=== PATIENT | female | born 1940 | race Two or more races ===

== ENCOUNTER 2017-05-08 13:07 | Inpatient (IN) | payer MEDICAID ==
[~2017-05-08] VITALS: Ht 149.9 cm; Wt 65.5 kg
[2017-05-08 15:00] LABS: Basophils # (auto) 0 uL; Basophils % (auto) 0.4 % (0.0-2.0); Eosinophils # (auto) 0.1 uL; Eosinophils % (auto) 1.5 % (0.0-7.0); Hematocrit 38.9 % (36.0-46.0); Hemoglobin 13.2 g/dL (12.2-16.2); Lymphocytes # (auto) 0.6 uL; Lymphocytes % (auto) 11.8 % (10.0-50.0); Mean Corpuscular Hemoglobin 31.4 pg (28.0-32.0); Mean Corpuscular Volume 92.4 fL (80.0-100.0); Monocytes # (auto) 0.5 uL; Monocytes % (auto) 9.1 % (0.0-12.0); Neutrophils # (auto) 4.1 uL; Neutrophils % (auto) 77.2 % (37.0-80.0); Platelet Count (auto) 96 10^3/uL (140-450); Red Blood Cells 4.21 10^6/uL (4.0-5.20); Red Cell Distribution Width 15.8 % (11.8-14.3); White Blood Cell 5.3 10^3/uL (4.4-10.8)
[2017-05-08 15:46] LABS: Alanine Aminotransferase 75 U/L (13-56); Albumin 3.2 g/dL (3.4-5.0); Alkaline Phosphatase 270 U/L (45-117); Amylase 207 U/L (25-115); Anion Gap 7 (5-15); Aspartate Aminotransferase 172 U/L (15-37); BUN/Creatinine Ratio 12.7; Blood Urea Nitrogen 20 mg/dL (7-18); Calcium 8.6 mg/dL (8.5-10.1); Carbon Dioxide 26 mmol/L (21-32); Chloride 105 mmol/L (98-107); GFR African American 41 mL/min; GFR Non-African American 34 mL/min; Glucose 195 mg/dL (74-106); Lipase 3472 U/L (73-393); Magnesium 2.4 mg/dL (1.6-2.6); Potassium 3.7 mmol/L (3.5-5.1); Sodium 138 mmol/L (136-145); Total Protein 8.1 g/dL (6.4-8.2)
[2017-05-08] MEDS ORDERED: SODIUM CHLORIDE 0.9% 500 ML IVB ONE (15:58)
[2017-05-08] MEDS ORDERED: ONDANSETRON HCL 4 MG/2 ML VIAL IV ONE (16:00)
[2017-05-08] MEDS ORDERED: cefTRIAXone 1GM/10ml IVPUSH 10 ML IV ONE (16:15)
[2017-05-08] MEDS ORDERED: LORazepam 0.5 MG TAB PO PRN (16:15)
[2017-05-08] MEDS ORDERED: MORPHINE SULFATE 4 MG/ML SYR/VIAL IV PRN (16:15)
[2017-05-08] MEDS ORDERED: NITROGLYCERIN 0.4 MG SL TAB SL PRN (16:15)
[2017-05-08] MEDS ORDERED: PANTOPRAZOLE 40 MG/10 ML VIAL IV ONE (16:15)
[2017-05-08] MEDS ORDERED: MORPHINE SULFATE 10 MG/ML INJ 1ML SDV IV PRN ×2 (16:15)
[2017-05-08] MEDS ORDERED: DEXTROSE (50%) 50ML SYRG IV PRN (16:15)
[2017-05-08 16:18] LABS: Urine Bacteria NONE SEEN /hpf (None Seen); Urine Blood 1+ /uL (Negative); Urine Specific Gravity 1.004 (1.001-1.035); Urine WBC <1 /hpf (0 - 5)
[2017-05-08] MEDS: SODIUM CHLORIDE 0.9% 1,000 ML IV SCH ×2 (16:32→22:48)
[2017-05-08] MEDS: ACCU-CHEK COMFORT CURVE STRIP VI SCH ×2 (18:06→23:45)
[2017-05-08] MEDS: InsuLIN REG 1unit/0.01ml Soln (100units/ml) SC SCH (18:11)
[2017-05-08 20:40] VITALS: BP 133/55
[2017-05-08 22:00] VITALS: BP 133/55
[2017-05-08] MEDS: metroNIDAZOLE 500MG/100ML 100 ML IV SCH (22:17)
[2017-05-09] MEDS ORDERED: CARV12.544 PO (05:06)
[2017-05-09] MEDS ORDERED: SITA100T7 PO ×2 (05:06)
[2017-05-09] MEDS ORDERED: ASPI-231 PO (05:06)
[2017-05-09] MEDS ORDERED: AMLO5TAB2 PO (05:06)
[2017-05-09] MEDS ORDERED: ISOS5TAB20 PO (05:10)
[2017-05-09] MEDS ORDERED: GABA300C10 PO (05:10)
[2017-05-09] MEDS ORDERED: SIMV-13 PO (05:10)
[2017-05-09] MEDS: metroNIDAZOLE 500MG/100ML 100 ML IV SCH ×3 (05:25→21:36)
[2017-05-09] MEDS: SODIUM CHLORIDE 0.9% 1,000 ML IV SCH ×3 (05:30→20:00)
[2017-05-09 05:51] VITALS: BP 131/56
[2017-05-09] MEDS: InsuLIN REG 1unit/0.01ml Soln (100units/ml) SC SCH ×4 (06:00→18:00)
[2017-05-09] MEDS: ACCU-CHEK COMFORT CURVE STRIP VI SCH ×3 (06:22→18:15)
[2017-05-09 07:06] LABS: Basophils # (auto) 0 uL; Basophils % (auto) 0.5 % (0.0-2.0); Eosinophils # (auto) 0.1 uL; Eosinophils % (auto) 2.3 % (0.0-7.0); Hemoglobin 11.8 g/dL (12.2-16.2); Lymphocytes % (auto) 22.4 % (10.0-50.0); Mean Corpuscular Hemoglobin 31.4 pg (28.0-32.0); Mean Corpuscular Hgb Conc. 33.6 g/dL (32.0-36.0); Mean Corpuscular Volume 93.3 fL (80.0-100.0); Monocytes # (auto) 0.7 uL; Monocytes % (auto) 14.6 % (0.0-12.0); Neutrophils # (auto) 2.8 uL; Neutrophils % (auto) 60.2 % (37.0-80.0); Platelet Count (auto) 79 10^3/uL (140-450); Red Blood Cells 3.75 10^6/uL (4.0-5.20); Red Cell Distribution Width 16.3 % (11.8-14.3); White Blood Cell 4.6 10^3/uL (4.4-10.8)
[2017-05-09 07:24] LABS: Albumin 2.6 g/dL (3.4-5.0); BUN/Creatinine Ratio 12.6; Bilirubin, Total 2.8 mg/dL (0.2-1.0); Calcium 8.2 mg/dL (8.5-10.1); Potassium 3.5 mmol/L (3.5-5.1); Total Protein 6.8 g/dL (6.4-8.2)
[2017-05-09 09:33] VITALS: BP 139/52
[2017-05-09] MEDS: cefTRIAXone 1GM/10ml IVPUSH 10 ML IV SCH (10:51)
[2017-05-09] MEDS: PANTOPRAZOLE 40 MG/10 ML VIAL IV SCH (10:52)
[2017-05-09 13:43] VITALS: BP 138/52
[2017-05-09 17:12] VITALS: BP 149/61
[2017-05-09 20:00] VITALS: BP 113/77
[2017-05-09 22:00] VITALS: BP 154/66
[2017-05-10] MEDS: ACCU-CHEK COMFORT CURVE STRIP VI SCH ×4 (00:25→18:00)
[2017-05-10] MEDS: InsuLIN REG 1unit/0.01ml Soln (100units/ml) SC SCH ×4 (00:26→18:00)
[2017-05-10] MEDS: SODIUM CHLORIDE 0.9% 1,000 ML IV SCH ×3 (01:32→13:47)
[2017-05-10 05:00] VITALS: BP 153/72
[2017-05-10] MEDS: metroNIDAZOLE 500MG/100ML 100 ML IV SCH ×2 (05:41→13:47)
[2017-05-10 09:00] VITALS: BP 159/71
[2017-05-10] MEDS: cefTRIAXone 1GM/10ml IVPUSH 10 ML IV SCH (09:14)
[2017-05-10] MEDS: PANTOPRAZOLE 40 MG/10 ML VIAL IV SCH (09:15)
[2017-05-10 13:00] VITALS: BP 161/69
[2017-05-10] MEDS ORDERED: CARVEDILOL 12.5 MG TAB PO ONE (13:30)
[2017-05-10] MEDS: amLODIPine BESYLATE 5 MG TAB PO ONE ×2 (13:30→13:47)
[2017-05-10 16:34] VITALS: BP 140/61
[2017-05-10 17:00] VITALS: BP 147/71
[2017-05-10] MEDS ORDERED: CARVEDILOL 12.5 MG TAB PO SCH (22:00)
[2017-05-11] MEDS ORDERED: amLODIPine BESYLATE 5 MG TAB PO SCH (10:00)
== END 2017-05-10 19:00 | disposition home or self-care (01) | DRG 282 ==
LOC: ER 13:13 → TELE 17:05 → TELE-CENTR 20:40
PROVIDERS: ADMIT Internal Medicine; ATTEND Internal Medicine
DX: K85.10 Biliary acute pancreatitis without necrosis or infection (principal); I13.2 Hypertensive heart and chronic kidney disease with heart failure and with stage 5 chronic kidney disease, or end stage renal disease; D69.6 Thrombocytopenia, unspecified; N18.6 End stage renal disease; K80.00 Calculus of gallbladder with acute cholecystitis without obstruction; E11.21 Type 2 diabetes mellitus with diabetic nephropathy; E11.22 Type 2 diabetes mellitus with diabetic chronic kidney disease; J44.9 Chronic obstructive pulmonary disease, unspecified; I50.9 Heart failure, unspecified; K57.32 Diverticulitis of large intestine without perforation or abscess without bleeding; I16.0 Hypertensive urgency; M10.9 Gout, unspecified; K42.9 Umbilical hernia without obstruction or gangrene; I25.10 Atherosclerotic heart disease of native coronary artery without angina pectoris; I25.2 Old myocardial infarction; Z87.442 Personal history of urinary calculi; Z95.1 Presence of aortocoronary bypass graft; Z90.49 Acquired absence of other specified parts of digestive tract
CPT/HCPCS: 36415; 74176; 76705; 78226; 80053; 80061; 81001; 82150; 82962; 83036; 83690; 83735; 84484; 85025; 93005; 94761; 96374; C9113; J1815; J2405; J3490

== ENCOUNTER 2017-06-26 19:06 | Inpatient (IN) | payer MEDICAID ==
[~2017-06-26] VITALS: Ht 149.9 cm; Wt 63.5 kg
[~2017-06-26 19:06] MED LIST: AMLO5TAB2 PO; ASPI-231 PO; CARV12.544 PO; GABA300C10 PO; ISOS5TAB20 PO; SIMV-13 PO; SITA100T7 PO
[2017-06-26 20:09] LABS: Alanine Aminotransferase 42 U/L (13-56); Albumin 3.2 g/dL (3.4-5.0); Anion Gap 7 (5-15); Aspartate Aminotransferase 68 U/L (15-37); BUN/Creatinine Ratio 13.2; Blood Urea Nitrogen 23 mg/dL (7-18); Calcium 8.6 mg/dL (8.5-10.1); Carbon Dioxide 24 mmol/L (21-32); Chloride 106 mmol/L (98-107); GFR African American 37 mL/min; GFR Non-African American 30 mL/min; Glucose 125 mg/dL (74-106); Potassium 4.5 mmol/L (3.5-5.1); Sodium 137 mmol/L (136-145)
[2017-06-26 20:10] LABS: Basophils # (auto) 0 uL; Basophils % (auto) 0.9 % (0.0-2.0); Eosinophils # (auto) 0.1 uL; Eosinophils % (auto) 3.2 % (0.0-7.0); Hematocrit 37.7 % (36.0-46.0); Hemoglobin 12.6 g/dL (12.2-16.2); Lymphocytes # (auto) 0.8 uL; Mean Corpuscular Hemoglobin 31.8 pg (28.0-32.0); Mean Corpuscular Hgb Conc. 33.3 g/dL (32.0-36.0); Mean Corpuscular Volume 95.3 fL (80.0-100.0); Monocytes # (auto) 0.6 uL; Monocytes % (auto) 15.1 % (0.0-12.0); Neutrophils # (auto) 2.3 uL; Neutrophils % (auto) 59.8 % (37.0-80.0); Nucleated Red Blood Cells % 0.2 %; Platelet Count (auto) 98 10^3/uL (140-450); Red Blood Cells 3.96 10^6/uL (4.0-5.20); Red Cell Distribution Width 15.9 % (11.8-14.3); White Blood Cell 3.9 10^3/uL (4.4-10.8)
[2017-06-26 20:14] LABS: Alkaline Phosphatase 156 U/L (45-117); Bilirubin, Total 0.6 mg/dL (0.2-1.0); Total Protein 8.1 g/dL (6.4-8.2)
[2017-06-26] MEDS ORDERED: SODIUM CHLORIDE 0.9% 1,000 ML IV ONE (20:44)
[2017-06-26] MEDS ORDERED: SODIUM CHLORIDE 0.9% 1,000 ML IVB ONE (20:44)
[2017-06-26] MEDS ORDERED: FUROSEMIDE 20 MG/2 ML VIAL IV ONE (21:00)
[2017-06-26 21:24] LABS: Urine Bacteria MOD /hpf (None Seen); Urine Blood 1+ /uL (Negative); Urine Specific Gravity 1.005 (1.001-1.035); Urine WBC 21 /hpf (0 - 5)
[2017-06-27] MEDS ORDERED: cefTRIAXone 1GM/10ml IVPUSH 10 ML IV ONE (00:45)
[2017-06-27] MEDS ORDERED: ENOXAPARIN SOD 60 MG/0.6 ML SYRINGE SC ONE (03:00)
[2017-06-27] MEDS ORDERED: ONDANSETRON HCL 4 MG/2 ML VIAL IV PRN (06:45)
[2017-06-27] MEDS ORDERED: ACETAMINOPHEN 325 MG TAB PO PRN (06:45)
[2017-06-27] MEDS ORDERED: NITROGLYCERIN 0.4 MG SL TAB SL PRN (06:45)
[2017-06-27] MEDS ORDERED: MORPHINE SULFATE 4 MG/ML SYR/VIAL IV PRN (06:45)
[2017-06-27] MEDS ORDERED: HYDROcodone-ACET 5/325MG TAB PO PRN (06:45)
[2017-06-27] MEDS ORDERED: DEXTROSE (50%) 50ML SYRG IV PRN (06:45)
[2017-06-27 07:34] LABS: Basophils # (auto) 0 uL; Basophils % (auto) 1.1 % (0.0-2.0); Eosinophils # (auto) 0.1 uL; Eosinophils % (auto) 3.1 % (0.0-7.0); Hematocrit 38.3 % (36.0-46.0); Hemoglobin 12.7 g/dL (12.2-16.2); Lymphocytes # (auto) 0.8 uL; Lymphocytes % (auto) 21.6 % (10.0-50.0); Mean Corpuscular Hemoglobin 31.4 pg (28.0-32.0); Mean Corpuscular Hgb Conc. 33.1 g/dL (32.0-36.0); Mean Corpuscular Volume 94.9 fL (80.0-100.0); Monocytes # (auto) 0.5 uL; Monocytes % (auto) 12.4 % (0.0-12.0); Neutrophils # (auto) 2.3 uL; Neutrophils % (auto) 61.8 % (37.0-80.0); Platelet Count (auto) 88 10^3/uL (140-450); Red Blood Cells 4.04 10^6/uL (4.0-5.20); Red Cell Distribution Width 15.8 % (11.8-14.3); White Blood Cell 3.8 10^3/uL (4.4-10.8)
[2017-06-27 07:45] LABS: Albumin 3.1 g/dL (3.4-5.0); BUN/Creatinine Ratio 14.2; Potassium 4.3 mmol/L (3.5-5.1)
[2017-06-27 07:47] LABS: Bilirubin, Total 0.7 mg/dL (0.2-1.0); Total Protein 7.8 g/dL (6.4-8.2)
[2017-06-27] MEDS ORDERED: cefTRIAXone 1GM/10ml IVPUSH 10 ML IV SCH (09:00)
[2017-06-27] MEDS ORDERED: ENOXAPARIN SOD 30 MG/0.3 ML SYRINGE SC SCH (10:00)
[2017-06-27] MEDS ORDERED: PANTOPRAZOLE 40 MG TAB PO SCH (10:00)
[2017-06-27] MEDS ORDERED: amLODIPine BESYLATE 5 MG TAB PO SCH (10:00)
[2017-06-27] MEDS ORDERED: ENOXAPARIN SOD 40 MG/0.4 ML SYRINGE SC SCH (10:00)
[2017-06-27] MEDS ORDERED: ASPirin 81 mg TAB PO SCH (10:00)
[2017-06-27] MEDS ORDERED: CARVEDILOL 12.5 MG TAB PO SCH (10:00)
[2017-06-27] MEDS ORDERED: FAMOTIDINE 20 MG TAB PO SCH ×2 (10:00)
[2017-06-27] MEDS ORDERED: GLIP-116 PO (10:41)
[2017-06-27] MEDS ORDERED: InsuLIN REG 1unit/0.01ml Soln (100units/ml) SC SCH (12:00)
[2017-06-27] MEDS ORDERED: ACCU-CHEK COMFORT CURVE STRIP VI SCH (12:00)
[2017-06-27 13:25] VITALS: BP 153/61
[2017-06-27] MEDS ORDERED: KETOROLAC TROMETH 30 MG/ML 1ML VIAL IV ONE (17:00)
[2017-06-27] MEDS ORDERED: TRIAMCINOLONE 40MG/ML 1ML VIAL IM ONE ×2 (17:00→17:30)
[2017-06-27] MEDS ORDERED: ATORVASTATIN 20 MG TAB PO SCH (22:00)
[2017-06-27] MEDS ORDERED: PATIENTS OWN MEDICATION (simvastatin 40 MG) PO SCH (22:00)
== END 2017-06-27 17:31 | disposition home or self-care (01) | DRG 198 ==
LOC: ER 19:06 → TELE 19:07
PROVIDERS: ADMIT Nurse Practitioner; ATTEND Internal Medicine
DX: I24.9 Acute ischemic heart disease, unspecified (principal); I50.43 Acute on chronic combined systolic (congestive) and diastolic (congestive) heart failure; E11.22 Type 2 diabetes mellitus with diabetic chronic kidney disease; D69.6 Thrombocytopenia, unspecified; J44.9 Chronic obstructive pulmonary disease, unspecified; N18.3 Chronic kidney disease, stage 3 (moderate); I13.0 Hypertensive heart and chronic kidney disease with heart failure and stage 1 through stage 4 chronic kidney disease, or unspecified chronic kidney disease; M94.0 Chondrocostal junction syndrome [Tietze]; R10.9 Unspecified abdominal pain; M10.9 Gout, unspecified; R09.89 Other specified symptoms and signs involving the circulatory and respiratory systems; M19.90 Unspecified osteoarthritis, unspecified site; E78.5 Hyperlipidemia, unspecified; I25.10 Atherosclerotic heart disease of native coronary artery without angina pectoris; I25.2 Old myocardial infarction; Z95.1 Presence of aortocoronary bypass graft; Z90.49 Acquired absence of other specified parts of digestive tract; Z79.899 Other long term (current) drug therapy; Z79.82 Long term (current) use of aspirin; Z82.49 Family history of ischemic heart disease and other diseases of the circulatory system
CPT/HCPCS: 36415; 71045; 78582; 80053; 81001; 82962; 83735; 83880; 84484; 85025; 85379; 93005; 93306; 93886; 93970; 96361; 96372; 96374; 96376; J1885

== ENCOUNTER 2020-12-14 11:53 | Emergency (ER) | payer MEDICAID ==
[~2020-12-14] VITALS: Ht 149.9 cm; Wt 59.9 kg
[~2020-12-14 11:53] MED LIST changes: +AMLO-489 PO; -AMLO5TAB2 PO; +GLIP10TA9 PO
[2020-12-14 13:23] LABS: Basophils # (auto) 0.1 10 ^3/uL (0-0.2); Eosinophils # (auto) 0.1 10 ^3/uL (0-0.8); Eosinophils % (auto) 1.4 % (0.0-7.0); Hematocrit 35.7 % (36.0-46.0); Hemoglobin 12.4 g/dL (12.2-16.2); Lymphocytes # (auto) 0.8 10 ^3/uL (0.4-5.4); Lymphocytes % (auto) 13.3 % (10.0-50.0); Mean Corpuscular Hemoglobin 31.4 pg (28.0-32.0); Mean Corpuscular Hgb Conc. 34.8 g/dL (32.0-36.0); Mean Corpuscular Volume 90.3 fL (80.0-100.0); Monocytes # (auto) 0.7 10 ^3/uL (0-1.3); Neutrophils # (auto) 4.1 10 ^3/uL (1.6-8.6); Neutrophils % (auto) 72.3 % (37.0-80.0); Nucleated Red Blood Cells % 0.1 %; Red Blood Cells 3.96 10^6/uL (4.0-5.20); Red Cell Distribution Width 15.1 % (11.8-14.3); White Blood Cell 5.7 10^3/uL (4.4-10.8)
[2020-12-14 13:39] LABS: Albumin 2.8 g/dL (3.4-5.0); Calcium 8.5 mg/dL (8.5-10.1); Potassium 3.8 mmol/L (3.5-5.1)
[2020-12-14 13:42] LABS: BUN/Creatinine Ratio 12.8; Bilirubin, Total 0.8 mg/dL (0.2-1.0); Total Protein 7.9 g/dL (6.4-8.2)
[2020-12-14 15:10] LABS: Urine Bacteria MANY /hpf (None Seen); Urine Blood 1+ /uL (Negative); Urine Mucus FEW (None Seen); Urine Specific Gravity 1.016 (1.001-1.035); Urine WBC 137 /hpf (0 - 5); Urine WBC Clumps PRESENT /hpf (None Seen)
[2020-12-14 16:17] VITALS: BP 152/63
== END 2020-12-14 16:25 | disposition home or self-care (01) ==
LOC: ER 11:53
DX: N39.0 Urinary tract infection, site not specified (principal); I13.2 Hypertensive heart and chronic kidney disease with heart failure and with stage 5 chronic kidney disease, or end stage renal disease; E11.22 Type 2 diabetes mellitus with diabetic chronic kidney disease; N18.6 End stage renal disease; I50.9 Heart failure, unspecified; I25.10 Atherosclerotic heart disease of native coronary artery without angina pectoris; J44.9 Chronic obstructive pulmonary disease, unspecified; I25.2 Old myocardial infarction; M10.9 Gout, unspecified; Z95.1 Presence of aortocoronary bypass graft; Z90.49 Acquired absence of other specified parts of digestive tract; Z79.82 Long term (current) use of aspirin; Z79.899 Other long term (current) drug therapy
CPT/HCPCS: 36415; 71045; 74176; 80053; 81001; 85025

== ENCOUNTER 2020-12-29 12:38 | Inpatient (IN) | payer MEDICAID ==
[~2020-12-29] VITALS: Ht 147.3 cm; Wt 62.6 kg
[~2020-12-29 12:38] MED LIST changes: -ASPI-231 PO; +ASPI1TAB20 PO
[2020-12-29 13:48] LABS: Basophils # (auto) 0.1 10 ^3/uL (0-0.2); Basophils % (auto) 1.7 % (0.0-2.0); Eosinophils # (auto) 0.1 10 ^3/uL (0-0.8); Eosinophils % (auto) 1.4 % (0.0-7.0); Hematocrit 37.5 % (36.0-46.0); Hemoglobin 12.2 g/dL (12.2-16.2); Lymphocytes # (auto) 0.6 10 ^3/uL (0.4-5.4); Lymphocytes % (auto) 14.1 % (10.0-50.0); Mean Corpuscular Hemoglobin 29.2 pg (28.0-32.0); Mean Corpuscular Hgb Conc. 32.6 g/dL (32.0-36.0); Mean Corpuscular Volume 89.8 fL (80.0-100.0); Monocytes # (auto) 0.4 10 ^3/uL (0-1.3); Monocytes % (auto) 10.2 % (0.0-12.0); Neutrophils # (auto) 2.9 10 ^3/uL (1.6-8.6); Neutrophils % (auto) 72.6 % (37.0-80.0); Nucleated Red Blood Cells % 0.1 %; Red Blood Cells 4.18 10^6/uL (4.0-5.20); Red Cell Distribution Width 14.7 % (11.8-14.3)
[2020-12-29 14:22] LABS: Albumin 2.8 g/dL (3.4-5.0); Calcium 8.8 mg/dL (8.5-10.1); Magnesium 1.9 mg/dL (1.6-2.6); Potassium 3.5 mmol/L (3.5-5.1)
[2020-12-29 14:25] LABS: BUN/Creatinine Ratio 8.4; Bilirubin, Total 0.7 mg/dL (0.2-1.0); Total Protein 7.3 g/dL (6.4-8.2)
[2020-12-29 15:42] LABS: Urine Bacteria FEW /hpf (None Seen); Urine Blood 2+ /uL (Negative); Urine Hyaline Cast FEW /lpf (0 - 2); Urine Mucus FEW (None Seen); Urine Specific Gravity 1.009 (1.001-1.035); Urine WBC 5 /hpf (0 - 5)
[2020-12-29] MEDS ORDERED: ONDANSETRON HCL 4 MG/2 ML VIAL IV PRN (19:00)
[2020-12-29] MEDS ORDERED: NITROGLYCERIN 0.4 MG SL TAB SL PRN (19:00)
[2020-12-29] MEDS ORDERED: IPRATROPIUM BROM 0.5 MG/2.5ML INH SOL NEB PRN (19:00)
[2020-12-29] MEDS ORDERED: ACETAMINOPHEN 325 MG TAB PO PRN (19:00)
[2020-12-29] MEDS ORDERED: DOCUSATE CALCIUM 240 MG CAP PO PRN (19:00)
[2020-12-29] MEDS ORDERED: MORPHINE SULFATE INJECTION 2 MG/ML SYRG IV PRN ×2 (19:00)
[2020-12-29] MEDS ORDERED: LORazepam 0.5 MG TAB PO PRN (19:00)
[2020-12-29 19:12] VITALS: BP 144/57
[2020-12-29 22:00] VITALS: BP 146/60
[2020-12-30] MEDS ORDERED: COLC1CAP PO (01:57)
[2020-12-30] MEDS ORDERED: ATOR10TA PO (01:57)
[2020-12-30] MEDS ORDERED: FURO40TA4 PO (01:57)
[2020-12-30 05:00] VITALS: BP 154/67
[2020-12-30] MEDS: CARVEDILOL 12.5 MG TAB PO SCH (05:54)
[2020-12-30 06:44] LABS: Basophils # (auto) 0 10 ^3/uL (0-0.2); Basophils % (auto) 0.8 % (0.0-2.0); Eosinophils # (auto) 0.1 10 ^3/uL (0-0.8); Eosinophils % (auto) 2.7 % (0.0-7.0); Hematocrit 34.9 % (36.0-46.0); Hemoglobin 11.8 g/dL (12.2-16.2); Lymphocytes # (auto) 0.5 10 ^3/uL (0.4-5.4); Lymphocytes % (auto) 18.1 % (10.0-50.0); Mean Corpuscular Hemoglobin 30.2 pg (28.0-32.0); Mean Corpuscular Hgb Conc. 33.8 g/dL (32.0-36.0); Mean Corpuscular Volume 89.2 fL (80.0-100.0); Monocytes # (auto) 0.2 10 ^3/uL (0-1.3); Monocytes % (auto) 9.1 % (0.0-12.0); Neutrophils # (auto) 1.9 10 ^3/uL (1.6-8.6); Neutrophils % (auto) 69.3 % (37.0-80.0); Red Blood Cells 3.92 10^6/uL (4.0-5.20); Red Cell Distribution Width 14.4 % (11.8-14.3); White Blood Cell 2.7 10^3/uL (4.4-10.8)
[2020-12-30 07:06] LABS: Potassium 3.4 mmol/L (3.5-5.1)
[2020-12-30 07:18] LABS: Albumin 2.4 g/dL (3.4-5.0); BUN/Creatinine Ratio 8.5; Calcium 8.5 mg/dL (8.5-10.1)
[2020-12-30 08:19] LABS: Bilirubin, Total 0.6 mg/dL (0.2-1.0); Total Protein 6.5 g/dL (6.4-8.2)
[2020-12-30] MEDS: PANTOPRAZOLE 40 MG TAB PO SCH (08:31)
[2020-12-30] MEDS: cefTRIAXone 1GM/50ML D5W 50 ML IV SCH (08:31)
[2020-12-30 09:00] VITALS: BP 151/62
[2020-12-30] MEDS: hydrALAZINE HCL 20 MG/ML VL IV PRN (09:10)
[2020-12-30 09:19] LABS: INR 1.21 (0.9-1.15)
[2020-12-30] MEDS ORDERED: ENOXAPARIN SOD 30 MG/0.3 ML SYRINGE SC SCH (10:00)
[2020-12-30 12:09] LABS: Uric Acid 9.9 mg/dL (2.6-6.0)
[2020-12-30 13:00] VITALS: BP 134/52
[2020-12-30] MEDS ORDERED: IPRATROPIUM BROM 0.5 MG/2.5ML INH SOL NEB ONE (14:15)
[2020-12-30 17:00] VITALS: BP 149/71
[2020-12-30] MEDS: IPRATROPIUM BROM 0.5 MG/2.5ML INH SOL NEB SCH ×3 (18:49→22:47)
[2020-12-30] MEDS: ALBUTEROL SULF 2.5 MG/0.5ML(0.5%) NEB SOLN NEB PRN (18:49)
[2020-12-30 22:00] VITALS: BP 144/59
[2020-12-31 05:00] VITALS: BP 138/57
[2020-12-31 05:43] LABS: Basophils # (auto) 0 10 ^3/uL (0-0.2); Basophils % (auto) 0.9 % (0.0-2.0); Eosinophils # (auto) 0.1 10 ^3/uL (0-0.8); Eosinophils % (auto) 2.8 % (0.0-7.0); Hematocrit 34.7 % (36.0-46.0); Hemoglobin 11.6 g/dL (12.2-16.2); Lymphocytes # (auto) 0.6 10 ^3/uL (0.4-5.4); Lymphocytes % (auto) 19.7 % (10.0-50.0); Mean Corpuscular Hemoglobin 30.6 pg (28.0-32.0); Mean Corpuscular Hgb Conc. 33.3 g/dL (32.0-36.0); Mean Corpuscular Volume 91.8 fL (80.0-100.0); Monocytes # (auto) 0.3 10 ^3/uL (0-1.3); Monocytes % (auto) 10.2 % (0.0-12.0); Neutrophils # (auto) 1.9 10 ^3/uL (1.6-8.6); Neutrophils % (auto) 66.4 % (37.0-80.0); Nucleated Red Blood Cells % 0.1 %; Red Blood Cells 3.78 10^6/uL (4.0-5.20); Red Cell Distribution Width 15.1 % (11.8-14.3); White Blood Cell 2.9 10^3/uL (4.4-10.8)
[2020-12-31 06:02] LABS: INR 1.17 (0.9-1.15); Partial Thromboplastin Time 25.6 sec (23.6-33.0)
[2020-12-31 06:03] LABS: Albumin 2.3 g/dL (3.4-5.0); Calcium 7.9 mg/dL (8.5-10.1); Magnesium 1.8 mg/dL (1.6-2.6); Potassium 3.6 mmol/L (3.5-5.1); Uric Acid 9.6 mg/dL (2.6-6.0)
[2020-12-31 06:09] LABS: BUN/Creatinine Ratio 7.3; Bilirubin, Total 0.5 mg/dL (0.2-1.0); Phosphorus 3.1 mg/dL (2.5-4.90); Total Protein 6.3 g/dL (6.4-8.2)
[2020-12-31] MEDS: IPRATROPIUM BROM 0.5 MG/2.5ML INH SOL NEB SCH ×3 (06:56→13:54)
[2020-12-31] MEDS: ALBUTEROL SULF 2.5 MG/0.5ML(0.5%) NEB SOLN NEB PRN ×4 (06:57→18:23)
[2020-12-31] MEDS: CARVEDILOL 12.5 MG TAB PO SCH (07:09)
[2020-12-31] MEDS: cefTRIAXone 1GM/50ML D5W 50 ML IV SCH (08:38)
[2020-12-31] MEDS: FUROSEMIDE 40 MG TAB PO SCH (08:38)
[2020-12-31] MEDS: PANTOPRAZOLE 40 MG TAB PO SCH (08:38)
[2020-12-31] MEDS: SPIRONOLACTONE 25 MG TAB PO SCH (08:38)
[2020-12-31 09:00] VITALS: BP 127/58
[2020-12-31 13:00] VITALS: BP 131/60
[2020-12-31 17:00] VITALS: BP 143/62
[2020-12-31] MEDS: IPRATROPIUM BROM 0.5 MG/2.5ML INH SOL NEB PRN (18:23)
[2020-12-31 20:00] VITALS: BP 139/74
[2020-12-31 22:00] VITALS: BP 139/74
[2021-01-01 05:00] VITALS: BP 159/63
[2021-01-01 06:01] LABS: Basophils # (auto) 0 10 ^3/uL (0-0.2); Eosinophils # (auto) 0.1 10 ^3/uL (0-0.8); Hemoglobin 11.1 g/dL (12.2-16.2); Lymphocytes # (auto) 0.6 10 ^3/uL (0.4-5.4); Monocytes # (auto) 0.3 10 ^3/uL (0-1.3); White Blood Cell 3.1 10^3/uL (4.4-10.8)
[2021-01-01] MEDS: CARVEDILOL 12.5 MG TAB PO SCH (06:01)
[2021-01-01 06:04] LABS: Basophils % (auto) 0.9 % (0.0-2.0); Eosinophils % (auto) 3.6 % (0.0-7.0); Hematocrit 32.8 % (36.0-46.0); Lymphocytes % (auto) 18.3 % (10.0-50.0); Mean Corpuscular Hgb Conc. 33.8 g/dL (32.0-36.0); Mean Corpuscular Volume 88.6 fL (80.0-100.0); Monocytes % (auto) 10.4 % (0.0-12.0); Neutrophils % (auto) 66.8 % (37.0-80.0); Red Cell Distribution Width 14.9 % (11.8-14.3)
[2021-01-01 06:17] LABS: INR 1.16 (0.9-1.15); Partial Thromboplastin Time 25.8 sec (23.6-33.0)
[2021-01-01 06:32] LABS: Potassium 3.4 mmol/L (3.5-5.1)
[2021-01-01 06:45] LABS: Albumin 2.2 g/dL (3.4-5.0); BUN/Creatinine Ratio 7.9; Bilirubin, Total 0.3 mg/dL (0.2-1.0); Calcium 7.9 mg/dL (8.5-10.1); Magnesium 1.9 mg/dL (1.6-2.6); Phosphorus 3.2 mg/dL (2.5-4.90); Total Protein 6.1 g/dL (6.4-8.2)
[2021-01-01 09:00] VITALS: BP 149/62
[2021-01-01] MEDS: SPIRONOLACTONE 25 MG TAB PO SCH (09:32)
[2021-01-01] MEDS: FUROSEMIDE 40 MG TAB PO SCH (09:32)
[2021-01-01] MEDS: cefTRIAXone 1GM/50ML D5W 50 ML IV SCH (09:32)
[2021-01-01] MEDS: PANTOPRAZOLE 40 MG TAB PO SCH (09:32)
[2021-01-01 13:00] VITALS: BP 161/69
[2021-01-01 13:19] LABS: Hepatitis B Surface Antigen Negative (Negative)
[2021-01-01 13:26] LABS: Hepatitis B Surface Antibody Positive
[2021-01-01] MEDS: hydrALAZINE HCL 20 MG/ML VL IV PRN (13:31)
[2021-01-01 13:39] LABS: Hepatitis A Total Antibody Positive
[2021-01-01 13:46] LABS: Hepatitis C Antibody Negative (Negative)
[2021-01-01 13:56] LABS: Hepatitis B Core Total AB Positive
[2021-01-01] MEDS: ALBUTEROL SULF 2.5 MG/0.5ML(0.5%) NEB SOLN NEB PRN ×2 (14:10→18:32)
[2021-01-01] MEDS: IPRATROPIUM BROM 0.5 MG/2.5ML INH SOL NEB PRN ×2 (14:10→18:32)
[2021-01-01 17:00] VITALS: BP 138/54
[2021-01-01] MEDS ORDERED: FUROSEMIDE 40 MG/4 ML VIAL IV ONE (18:00)
[2021-01-01] MEDS ORDERED: POTASSIUM CHL 20 Meq TABLET PO ONE ×3 (18:00→18:54)
[2021-01-01] MEDS ORDERED: FUROSEMIDE 40 MG/4 ML VIAL ONE (18:54)
[2021-01-01] MEDS ORDERED: FUROSEMIDE 20 MG/2 ML VIAL ONE (18:54)
[2021-01-01] MEDS: FUROSEMIDE 20 MG/2 ML VIAL IV SCH (18:57)
[2021-01-01] MEDS: POTASSIUM CHL 20 Meq TABLET PO SCH (21:08)
[2021-01-01 22:00] VITALS: BP 143/65
[2021-01-02 03:45] VITALS: BP 143/65
[2021-01-02 05:00] VITALS: BP 140/58
[2021-01-02] MEDS: CARVEDILOL 12.5 MG TAB PO SCH (06:49)
[2021-01-02] MEDS: FUROSEMIDE 20 MG/2 ML VIAL IV SCH (06:49)
[2021-01-02 06:58] LABS: Basophils # (auto) 0 10 ^3/uL (0-0.2); Eosinophils # (auto) 0.1 10 ^3/uL (0-0.8); Hemoglobin 11.2 g/dL (12.2-16.2); Lymphocytes # (auto) 0.6 10 ^3/uL (0.4-5.4); Monocytes # (auto) 0.4 10 ^3/uL (0-1.3); Neutrophils # (auto) 2.3 10 ^3/uL (1.6-8.6); White Blood Cell 3.5 10^3/uL (4.4-10.8)
[2021-01-02 07:02] LABS: Basophils % (auto) 0.6 % (0.0-2.0); Eosinophils % (auto) 3.9 % (0.0-7.0); Hematocrit 32.4 % (36.0-46.0); Lymphocytes % (auto) 17.6 % (10.0-50.0); Mean Corpuscular Hgb Conc. 34.5 g/dL (32.0-36.0); Mean Corpuscular Volume 89.9 fL (80.0-100.0); Monocytes % (auto) 12.4 % (0.0-12.0); Neutrophils % (auto) 65.5 % (37.0-80.0); Red Blood Cells 3.61 10^6/uL (4.0-5.20)
[2021-01-02 07:27] LABS: INR 1.1 (0.9-1.15); Partial Thromboplastin Time 26.2 sec (23.6-33.0)
[2021-01-02 07:29] LABS: Potassium 4.1 mmol/L (3.5-5.1)
[2021-01-02 07:35] LABS: Albumin 2.3 g/dL (3.4-5.0); BUN/Creatinine Ratio 9.2; Bilirubin, Total 0.4 mg/dL (0.2-1.0); Calcium 8.5 mg/dL (8.5-10.1); Total Protein 6.4 g/dL (6.4-8.2)
[2021-01-02 09:00] VITALS: BP 147/62
[2021-01-02] MEDS: cefTRIAXone 1GM/50ML D5W 50 ML IV SCH (09:31)
[2021-01-02] MEDS: SPIRONOLACTONE 25 MG TAB PO SCH (09:31)
[2021-01-02] MEDS: PANTOPRAZOLE 40 MG TAB PO SCH (09:32)
[2021-01-02] MEDS: POTASSIUM CHL 20 Meq TABLET PO SCH (09:32)
[2021-01-02 13:00] VITALS: BP 140/69
[2021-01-02] MEDS ORDERED: SPIR25TA PO (14:53)
[2021-01-02] MEDS ORDERED: LEVO-28 PO (14:53)
[2021-01-02 17:00] VITALS: BP 149/62
== END 2021-01-02 17:00 | disposition home or self-care (01) ==
LOC: ER 12:38 → TELE-CENTR 18:53
PROVIDERS: ADMIT Family Medicine; ATTEND Internal Medicine
PROC: 0W9G3ZZ Drainage of Peritoneal Cavity, Percutaneous Approach (ICD-10-PCS; principal; 2021-01-01)
DX: K74.60 Unspecified cirrhosis of liver (principal); N17.0 Acute kidney failure with tubular necrosis; E44.0 Moderate protein-calorie malnutrition; I13.0 Hypertensive heart and chronic kidney disease with heart failure and stage 1 through stage 4 chronic kidney disease, or unspecified chronic kidney disease; K56.7 Ileus, unspecified; I50.9 Heart failure, unspecified; D64.9 Anemia, unspecified; E11.22 Type 2 diabetes mellitus with diabetic chronic kidney disease; R18.8 Other ascites; K76.6 Portal hypertension; D69.59 Other secondary thrombocytopenia; R16.1 Splenomegaly, not elsewhere classified; K52.9 Noninfective gastroenteritis and colitis, unspecified; M10.9 Gout, unspecified; N39.0 Urinary tract infection, site not specified; E03.9 Hypothyroidism, unspecified; E78.5 Hyperlipidemia, unspecified; I25.10 Atherosclerotic heart disease of native coronary artery without angina pectoris; J44.9 Chronic obstructive pulmonary disease, unspecified; K42.9 Umbilical hernia without obstruction or gangrene; K43.9 Ventral hernia without obstruction or gangrene; E11.9 Type 2 diabetes mellitus without complications; E87.6 Hypokalemia; Z20.822 Contact with and (suspected) exposure to COVID-19; Z68.28 Body mass index [BMI] 28.0-28.9, adult; I25.2 Old myocardial infarction; Z90.49 Acquired absence of other specified parts of digestive tract; Z95.1 Presence of aortocoronary bypass graft; N18.30 Chronic kidney disease, stage 3 unspecified
CPT/HCPCS: 36415; 71045; 74176; 76700; 76942; 80053; 81001; 82105; 82140; 82306; 82728; 83036; 83605; 83690; 83735; 83880; 84100; 84443; 84484; 84550; 85025; 85610; 85730; 86038; 86704; 86706; 86708; 86803; 87040; 87205; 87340; 87426; 93005; 94640; 99291; G0378; J0696